=== PATIENT | male | born 1970 | race American Indian/Alaskan Native ===

== ENCOUNTER 2017-05-12 10:01 | Emergency (ER) | payer SELFPAY ==
[2017-05-12 10:42] LABS: Basophils % (Auto) 0.8 % (0.0-1.8); Hematocrit 44.6 % (35.5-45.6); Hemoglobin 14.7 gm/dl (11.8-15.2); Mean Corpuscular HGB Conc 33 % (32-34); Mean Corpuscular Hemoglobin 29 pg (28-32); Mean Corpuscular Volume 89 fl (84-94); Platelet Count 262 K/mm3 (140-440); Red Blood Count 4.99 M/mm3 (3.65-5.03); Red Cell Distribution Width 13.3 % (13.2-15.2); White Blood Count 6.5 K/mm3 (4.5-11.0)
[2017-05-12 11:11] LABS: Alanine Aminotransferase 12 units/L (7-56); Albumin 4.5 g/dL (3.9-5); Albumin/Globulin Ratio 1.7 %; Alkaline Phosphatase 35 units/L (35-129); Anion Gap 15 mmol/L; BUN/Creatinine Ratio 14.44; Blood Urea Nitrogen 13 mg/dL (9-20); Calcium 9.8 mg/dL (8.4-10.2); Carbon Dioxide 25 mmol/L (22-30); Chloride 106.5 mmol/L (98-107); Glucose 97 mg/dL (75-100); Lipase 32 units/L (13-60); Potassium 3.9 mmol/L (3.6-5.0); Sodium 143 mmol/L (137-145); Total Protein 7.2 g/dL (6.3-8.2)
[2017-05-12 12:59] LABS: Bacteria,Urine 1+ /HPF (Negative); Bilirubin,Urine NEG (Negative); Blood,Urine MOD (Negative); Ketones,Urine NEG (Negative); Leukocyte Esterase,Urine SM (Negative); Mucus,Urine FEW /HPF; Nitrite,Urine NEG (Negative); Protein,Urine <15 mg/dL mg/dL (Negative); Urobilinogen,Urine < 2.0 mg/dL (<2.0)
[2017-05-12] MEDS ORDERED: NORCO 7.5/325 PO ONE (22:35)
[2017-05-12] MEDS ORDERED: KEFLEX PO ONE (22:35)
[2017-05-13] MEDS ORDERED: ZITHROMAX PO ONE (00:10)
[2017-05-13] MEDS ORDERED: FLAGYL PO ONE (00:10)
--- NOTE | 2017-05-13 00:14 | Emergency Department Report ---
HPI - General Chief Complaint: Abdominal Pain Time Seen by Provider: 05/12/17 22:27 - HPI HPI: The patient's for 47-year-old male who presents for evaluation of abdominal pain. The patient reports no abdominal pain for the past 2 days, 9/10 severity , crampy in quality, constant for the past one day, and associated with dysuria. He states that his symptoms are consistent with previous urinary tract infection. The patient denies fever, chills, night sweats, diarrhea, blood in the stool, dark tarry stool, hematuria, flank pain, genital discharge, inability to pass flatus. ED Past Medical Hx - Past Medical History Previous Medical History?: No - Surgical History Past Surgical History?: Yes Hx Appendectomy: Yes - Social History Smoking Status: Never Smoker Substance Use Type: Alcohol, Marijuana - Medications Home Medications: Home Medications Medication Instructions Recorded Confirmed Last Taken Type Cephalexin [Keflex] 500 mg PO Q6HR #20 capsule 05/13/17 Unknown Rx traMADol [Ultram 50 MG tab] 50 mg PO Q6HR PRN #15 tablet 05/13/17 Unknown Rx ED Review of Systems ROS: Stated complaint: LEFT SIDE PAIN Other details as noted in HPI Constitutional: denies: fever ENT: denies: throat or neck pain Respiratory: denies: cough, shortness of breath Cardiovascular: denies: chest pain Endocrine: denies unexplained weight loss or gain Gastrointestinal: reports abdominal pain, nausea Genitourinary: denies: dysuria Musculoskeletal: denies: leg swelling Skin: denies: rash Neurological: denies: headache Hematological/Lymphatic: denies: easy bleeding or easy bruising Psych: denies sadness or hopelessness Physical Exam - Physical Exam Vital Signs: Vital Signs 05/12/17 05/12/17 05/12/17 10:07 20:17 22:00 Temperature 98.3 F 98.3 F 98 F Pulse Rate 50 L 50 L 48 L Respiratory 18 20 16 Rate Blood Pressure 128/70 121/70 Blood Pressure 134/77 [Right] O2 Sat by Pulse 100 99 99 Oximetry 05/12/17 23:00 Temperature Pulse Rate Respiratory 16 Rate Blood Pressure Blood Pressure [Right] O2 Sat by Pulse Oximetry Physical Exam: General: well-nourished, well-developed, no acute distress Head: Normocephalic, atraumatic Eyes: normal sclera ENT: Mucous membranes are pale and dry Neck: trachea midline, neck supple, No neck stiffness, no cervical adenopathy Respiratory: Breath sounds equal bilaterally, no wheezing, rales, or rhonchi Cardio: S1 and S2 present, no murmurs, rubs, gallops, capillary refill is delayed Abdomen: Normoactive bowel sounds, soft abdomen, llq and suprapubic tenderness to palpation present, no rigidity, no guarding or rebound tenderness Chest WALL/Back: No tenderness to palpation of the chest wall, no CVA tenderness with percussion Musc: No pitting edema Skin: No rash Neuro: no facial drooping, normal speech Psych: Normal affect ED Course Vital Signs 05/12/17 05/12/17 05/12/17 10:07 20:17 22:00 Temperature 98.3 F 98.3 F 98 F Pulse Rate 50 L 50 L 48 L Respiratory 18 20 16 Rate Blood Pressure 128/70 121/70 Blood Pressure 134/77 [Right] O2 Sat by Pulse 100 99 99 Oximetry 05/12/17 23:00 Temperature Pulse Rate Respiratory 16 Rate Blood Pressure Blood Pressure [Right] O2 Sat by Pulse Oximetry ED Medical Decision Making - Lab Data Result diagrams: 05/12/17 10:25 05/12/17 10:25 - Medical Decision Making The patient was seen and examined by myself. The patient is placed on a design lead and continuous pulse ox. On initial evaluation, the patient was found to be in no distress. Evaluation orders are placed. The patient given a tablet of [place] for his pain. Lab results revealed elevated urinalysis WBC with elevated LE, and positive for bacteria, consistent with urinary tract infection. Otherwise labs Were non-concerning including WBC, hemoglobin, hematocrit, electrolytes, renal function, LFTs, lipase. The patient is given cephalasporin, Flagyl, and azithromycin for treatment of urinary tract infection and potential STD etiology. The patient was reevaluated and reported that their symptoms were markedly improved. The patient is stable for discharge with outpatient follow-up. The patient is given follow-up and return instructions. The patient expressed understanding and agreed with the plan. The patient is discharged in stable condition. Critical care attestation.: If time is entered above; I have spent that time in minutes in the direct care of this critically ill patient, excluding procedure time. ED Disposition Clinical Impression: Acute lower UTI (urinary tract infection), Acute suprapubic pain, Acute abdominal pain in left lower quadrant Disposition: TO HOME OR SELFCARE Is pt being admited?: No Does the pt Need Aspirin: No Condition: Stable Instructions: Urinary Tract Infection in Men (ED), Acute Abdominal Pain (ED) Prescriptions: Cephalexin [Keflex] 500 mg PO Q6HR #20 capsule traMADol [Ultram 50 MG tab] 50 mg PO Q6HR PRN #15 tablet PRN Reason: Pain Referrals: PRIMARY CARE, [Primary Care Provider] - 3-5 Days Time of Disposition: 00:07
[2017-05-13 00:45] VITALS: BP 135/78
== END 2017-05-13 00:43 | disposition home or self-care (01) ==
LOC: ED 10:01
DX: N39.0 Urinary tract infection, site not specified (principal); F12.10 Cannabis abuse, uncomplicated
CPT/HCPCS: 36415; 80053; 81001; 83690; 85025; 99284